=== PATIENT | male | born 1995 | race Hispanic/Latino ===

== ENCOUNTER → 2023-08-06 | Outpatient (CLI) | payer SELFPAY ==
[2023-08-06 13:11] LABS: HIV 1&2 ANTIBODY Non-Reactive (Negative); HIV-1 p24 Antigen Non-Reactive (Negative)
[2023-08-06 13:12] LABS: ALBUMIN 4.1 g/dL (3.5-5.0); BILIRUBIN,DIRECT 0.1 mg/dL (0.0-0.3); BILIRUBIN,TOTAL 0.7 mg/dL (0.2-1.0); TOTAL PROTEIN, SERUM 7.9 g/dL (6.0-8.3)
[2023-08-14 00:12] LABS: HEPATITIS C VIRUS ANTIBODY Non Reactive (Non Reactive)
== END | disposition home or self-care (01) ==
LOC: LAB 10:05
PROVIDERS: ATTEND Physician Assistant
DX: Z20.89 Contact with and (suspected) exposure to other communicable diseases (principal)
CPT/HCPCS: 36415; 80076; 86701; 86704; 86706; 86803; 87389; 87390

== ENCOUNTER → 2023-08-27 | Outpatient (CLI) | payer OTHER ==
[2023-08-27 12:50] LABS: ALBUMIN 3.8 g/dL (3.5-5.0); BILIRUBIN,DIRECT 0.1 mg/dL (0.0-0.3); BILIRUBIN,TOTAL 0.7 mg/dL (0.2-1.0); TOTAL PROTEIN, SERUM 7.5 g/dL (6.0-8.3)
[2023-08-27 13:08] LABS: HIV 1&2 ANTIBODY Non-Reactive (Negative)
[2023-08-27 13:09] LABS: HIV-1 p24 Antigen Non-Reactive (Negative)
[2023-08-28 20:43] LABS: HEPATITIS B SURFACE ANTIBODY Negative (Reactive)
[2023-08-29 01:54] LABS: HEPATITIS B CORE AB TOTAL Non-Reactive (Nonreactive)
[2023-08-31 18:10] LABS: HEPATITIS C VIRUS ANTIBODY Non Reactive (Non Reactive)
== END | disposition home or self-care (01) ==
LOC: LAB 10:32
PROVIDERS: ATTEND Physician Assistant
DX: Z20.89 Contact with and (suspected) exposure to other communicable diseases (principal); R50.9 Fever, unspecified
CPT/HCPCS: 36415; 80076; 86701; 86704; 86706; 86803; 87390